=== PATIENT | female | born 1965 | race Caucasian/White ===

== ENCOUNTER 2023-02-27 21:58 | Emergency (ER) | payer BC ==
[~2023-02-27] VITALS: Ht 165.1 cm; Wt 59.0 kg
[2023-02-27 23:24] VITALS: BP 137/78; O2SAT 99
== END 2023-02-27 23:25 | disposition home or self-care (01) ==
LOC: ER 21:59
DX: S50.02XA Contusion of left elbow, initial encounter (principal); S30.0XXA Contusion of lower back and pelvis, initial encounter; G56.22 Lesion of ulnar nerve, left upper limb; Z88.1 Allergy status to other antibiotic agents; W01.0XXA Fall on same level from slipping, tripping and stumbling without subsequent striking against object, initial encounter; Y93.89 Activity, other specified; Y92.89 Other specified places as the place of occurrence of the external cause; Y99.8 Other external cause status
CPT/HCPCS: 73080; A4663